=== PATIENT | male | born 1985 | race Two or more races ===

== ENCOUNTER → 2025-01-27 | Outpatient (CLI) | payer BC, SELFPAY ==
[2025-02-02 06:38] LABS: Testosterone,Total* 50 ng/dL (250-1100)
== END | disposition home or self-care (01) ==
LOC: COPL 15:43
PROVIDERS: PCP Nurse Practitioner Family; Referring Provider Urology; Visit Provider Urology
DX: E29.1 Testicular hypofunction (principal)
CPT/HCPCS: 36415; 84153; 84403

== ENCOUNTER → 2025-04-19 | Outpatient (CLI) | payer BC, SELFPAY ==
[2025-04-27 07:01] LABS: Testosterone,Total* 712 ng/dL (250-1100)
== END | disposition home or self-care (01) ==
LOC: COPL 11:35
PROVIDERS: PCP Nurse Practitioner Family; Referring Provider Urology; Visit Provider Urology
DX: E29.1 Testicular hypofunction (principal)
CPT/HCPCS: 36415; 84403